=== PATIENT | female | born 1950 | race Two or more races ===

== ENCOUNTER → 2019-02-28 | Emergency (ER) | payer OTHER ==
[~2019-02-28] VITALS: Ht 157.5 cm; Wt 73.5 kg
== END | disposition home or self-care (01) ==
LOC: ER 04:04
DX: R00.2 Palpitations (principal); F41.8 Other specified anxiety disorders; T65.891A Toxic effect of other specified substances, accidental (unintentional), initial encounter; Y92.89 Other specified places as the place of occurrence of the external cause

== ENCOUNTER 2025-05-04 02:28 | Emergency (ER) | payer OTHER ==
[~2025-05-04] VITALS: Ht 149.9 cm; Wt 67.1 kg
[2025-05-04] MEDS ORDERED: GUAIFENESIN 200 MG/10 ML BLIST.PACK PO STA (04:42)
[2025-05-04] MEDS ORDERED: ACETAMINOPHEN 500 MG GEL..CAP PO STA (04:43)
[2025-05-04] MEDS ORDERED: LEVALBUTEROL HCL 0.63 MG/3 ML SOLUTION IH SCH (04:45)
[2025-05-04] MEDS ORDERED: LEVALBUTEROL HCL 0.63 MG/3 ML SOLUTION IH ONE (04:47)
[2025-05-04] MEDS ORDERED: ACETAMINOPHEN 500 MG GEL..CAP PO ONE (04:48)
[2025-05-04] MEDS ORDERED: GUAIFENESIN 200 MG/10 ML BLIST.PACK PO ONE (04:49)
[2025-05-04] MEDS ORDERED: ZYNCOF 20-400120 ML PO (05:45)
[2025-05-04] MEDS ORDERED: LEVALBUTER0.63 MG/3 IH (05:45)
== END 2025-05-04 05:50 ==
LOC: ER 02:28
DX: R07.89 Other chest pain (principal); J98.8 Other specified respiratory disorders; Z88.0 Allergy status to penicillin; Z91.013 Allergy to seafood

== ENCOUNTER 2025-05-06 23:37 | Emergency (ER) | payer OTHER ==
[~2025-05-06] VITALS: Ht 149.9 cm; Wt 67.1 kg
[~2025-05-06 23:37] MED LIST: LEVALBUTER0.63 MG/3 IH; ZYNCOF 20-400120 ML PO
[2025-05-06 23:52] VITALS: BP 131/80; O2SAT 99
[2025-05-07] MEDS ORDERED: GUAIFENESIN 200 MG/10 ML BLIST.PACK PO STA (01:34)
[2025-05-07] MEDS ORDERED: AZITHROMYCIN 500 MG TABLET PO STA (01:35)
[2025-05-07] MEDS ORDERED: AZITHROMYCIN 500 MG TABLET PO ONE (02:00)
[2025-05-07] MEDS ORDERED: GUAIFENESIN 200 MG/10 ML BLIST.PACK PO ONE (02:01)
== END 2025-05-07 04:56 | disposition home or self-care (01) ==
LOC: ER 23:38
DX: R05.3 Chronic cough (principal); Z88.0 Allergy status to penicillin; Z91.013 Allergy to seafood